=== PATIENT | male | born 1995 | race Caucasian/White ===

== ENCOUNTER 2022-04-04 20:35 | Emergency (ER) | payer BC, OTHER ==
[2022-04-04] MEDS ORDERED: Glucagon,Human Recombinant 1 MG Vial IM ONE (20:37)
[2022-04-04 21:01] VITALS: BP 141/100; PULSE 88
== END 2022-04-04 21:27 | disposition short-term general hospital (02) ==
LOC: VM.ED 20:35
DX: T18.128A Food in esophagus causing other injury, initial encounter (principal); Z91.011 Allergy to milk products; W45.8XXA Other foreign body or object entering through skin, initial encounter
CPT/HCPCS: 96372; 99283; 99284; J1610